=== PATIENT | female | born 1995 | race Caucasian/White ===

== ENCOUNTER → 2016-05-25 | Outpatient (CLI) | payer OTHER ==
[~2016-05-25] MED LIST: ACET50TA PO; IBUP800T23 PO; NORCOTAB PO; STUACAP PO
[2016-05-25 13:25] LABS: MEAN CORPUSCULAR HEMOGLOBIN 27.6 pg (27.0-33.0); MEAN CORPUSCULAR HGB CONC 32.6 g/dl (32.0-36.5); MEAN CORPUSCULAR VOLUME 84.8 fl (80.0-96.0); RED CELL DISTRIBUTION WIDTH 14.5 % (11.5-14.5); WHITE BLOOD COUNT 10.8 K/mm3 (4.0-10.0)
[2016-05-25 13:39] LABS: FREE T4 1.02 NG/DL (0.78-1.33)
== END ==
LOC: M SMT 08:24
PROVIDERS: ATTEND Obstetrics & Gynecology
DX: Z34.82 Encounter for supervision of other normal pregnancy, second trimester (principal)

== ENCOUNTER → 2016-05-30 | Outpatient (CLI) | payer OTHER | LOC: M SMT 09:21 | PROVIDERS: ATTEND Obstetrics & Gynecology | DX: Z34.82 Encounter for supervision of other normal pregnancy, second trimester (principal) ==

== ENCOUNTER → 2016-06-13 | Outpatient (CLI) | payer OTHER ==
--- NOTE | 2016-06-13 16:08 | REP ---
Obstetric sonography: History: Supervision of , second trimester study. For anatomy. Findings: Scanning through the gravid uterus demonstrates a viable single intrauterine gestation in a breech lie. motion is observed and heart rate is recorded at 155 beats per minute. A marginal posterior placenta is seen, grade 0 without evidence of previa or abruption. Closed cervical length is 4.3 cm measured trans-vaginally as well as transabdominally. On transvaginal imaging, the inferior edge of the placenta is only 0.25 cm from the internal cervical os. Also noted on transvaginal imaging is a thin cord-like structure extending down to the inferior edge of the placenta at the internal cervical os. This of uncertain significance. It is avascular on Doppler interrogation. Thus, there is not felt to be evidence of vasa previa. Follow-up is recommended however. No extrauterine abnormalities observed. No anomaly is seen. The following anatomic structures are less than optimally seen today due to position: cerebellum and posterior fossa, face and profile, four-chamber heart with left and right ventricular cardiac outflow tract views, kidneys, spine. The following additional anatomic structures are identified and felt to be sonographically unremarkable: cranium, choroid plexus, cavum, lungs, diaphragm, left-sided stomach, abdominal wall cord insertion, three-vessel umbilical cord, urinary bladder, upper and lower extremities. Biometry chart: BPD 4.4 cm = 19 weeks 1 day HC 16.5 cm = 19 weeks 2 days AC 14.3 cm = 19 weeks 5 days FL 2.9 cm = 19 weeks 0 days HL 2.8 cm = 18 weeks 6 days HC/AC ratio normal 1.15. Cephalic index normal 0.73. Estimated weight 287 grams 0 pounds 10 ounces, 60th percentile for 19 weeks 0 days. Impression: Viable single intrauterine gestation at 19 weeks 1 day by today's composite criteria. WILL by today's sonography November 06, 2016. anatomic survey less than complete. Low posterior marginal placenta, 0.25 cm. Cord-like structure at the inferior placental attachment, uncertain etiology. Internal cervical os placental margin follow-up suggested. Followup for additional anatomy. Signed by Dmitriy Warner MD 06/13/2016 07:44 P
== END ==
LOC: M RAD 14:31
PROVIDERS: ATTEND Obstetrics & Gynecology
DX: Z36 Encounter for antenatal screening of mother (principal); Z3A.19 19 weeks gestation of pregnancy

== ENCOUNTER → 2016-06-24 | Outpatient (REF) | payer MEDICAID, OTHER | LOC: M LAB REF 16:52 | PROVIDERS: ATTEND Obstetrics & Gynecology | DX: O99.212 Obesity complicating pregnancy, second trimester (principal); Z3A.00 Weeks of gestation of pregnancy not specified ==

== ENCOUNTER → 2016-07-02 | Outpatient (REF) | payer MEDICAID | LOC: M LAB REF 12:08 | PROVIDERS: ATTEND Physician Assistant Medical | DX: B34.9 Viral infection, unspecified (principal) ==

== ENCOUNTER → 2016-07-06 | Outpatient (CLI) | payer MEDICAID, OTHER, SELFPAY ==
--- NOTE | 2016-07-06 16:52 | REP ---
Clinical: Anatomical evaluation. Comparison: 06/13/2016 . Findings: Examination demonstrates a single live intrauterine in cephalic presentation. motion is identified by technologist. Placenta is noted posteriorly and low-lying approximately 1.6 cm from the closed internal os and grade 1. Amniotic fluid volume is normal. Cervix measures 4.7 cm in length and appears closed. No evidence for nuchal cord. Gestational age by LMP 22 weeks 2 days with WILL 11/07/2016 . Gestational age by current measurements 21 weeks 2 days with WILL is 11/14/2016 . FHR equals 161 beats per minute. Estimated weight 461 grams ( 34th percentile). Anatomical assessment demonstrates normal structures including cranium, choroid plexus, cavum, cerebellum/posterior fossa, facial features, lungs, four-chamber heart/ventricular outflow tracts, diaphragm, stomach, cord insertion/three-vessel cord, kidneys/bladder, spine, and extremities. Impression: 1. Single live intrauterine in cephalic presentation demonstrating appropriate interval growth. Anatomical assessment is complete and normal. 2. Posterior low-lying placenta approximately 1.6 cm from the closed os. 3. Nuchal cord cannot be excluded. Signed by Sanju Call MD 07/06/2016 04:43 P
== END ==
LOC: M RAD 14:55
PROVIDERS: ATTEND Obstetrics & Gynecology
DX: Z36 Encounter for antenatal screening of mother (principal); Z3A.21 21 weeks gestation of pregnancy

== ENCOUNTER → 2016-07-08 | Outpatient (REF) | payer MEDICAID | LOC: M LAB REF 16:46 | PROVIDERS: ATTEND Obstetrics & Gynecology | DX: O99.212 Obesity complicating pregnancy, second trimester (principal); Z3A.00 Weeks of gestation of pregnancy not specified ==

== ENCOUNTER → 2016-08-16 | Outpatient (CLI) | payer OTHER ==
[2016-08-16 13:42] LABS: MEAN CORPUSCULAR HEMOGLOBIN 30.6 pg (27.0-33.0); MEAN CORPUSCULAR VOLUME 92.7 fl (80.0-96.0); RED CELL DISTRIBUTION WIDTH 14.4 % (11.5-14.5); WHITE BLOOD COUNT 11.1 K/mm3 (4.0-10.0)
== END ==
LOC: M SMT 08:47
PROVIDERS: ATTEND Obstetrics & Gynecology
DX: Z34.02 Encounter for supervision of normal first pregnancy, second trimester (principal)

== ENCOUNTER → 2016-09-13 | Outpatient (CLI) | payer OTHER ==
--- NOTE | 2016-09-14 05:15 | REP ---
Clinical: Growth discrepancy. Placental location . Comparison: 07/06/2016 . Findings: Examination demonstrates a single live intrauterine in cephalic presentation. motion is identified by technologist. Placenta is noted posteriorly and grade zero without evidence for placenta previa or abruption. Amniotic fluid volume is normal. Cervix measures 3.7 cm in length and appears closed. No evidence for nuchal cord. Gestational age by LMP 32 weeks 1 day with WILL 11/07/2016 . Gestational age by current measurements 33 weeks 6 day with WILL 10/26/2016 . FHR equals 155 beats per minute. BPD 8.5 cm 34 weeks 2 days HC 31.2 cm 35 weeks 0 days AC 38.3 cm 34 weeks 2 days FL 6.6 cm 33 weeks 5 days HL 5.5 cm 32 weeks 1 day HC/AC ratio 1.03 Estimated weight 2371 grams ( 88th percentile). Amniotic fluid index equals 13.4 cm (8.6 724.2). SD ratio equals 3.10 (2.45 - 3.45) Impression: 1. Single live intrauterine in a straight appropriate interval growth. 2. Placenta noted posteriorly, grade zero, and without placenta previa. Signed by Sanju Call MD 09/14/2016 05:06 A
== END ==
LOC: M RAD 16:43
PROVIDERS: ATTEND Obstetrics & Gynecology
DX: Z36 Encounter for antenatal screening of mother (principal); Z3A.33 33 weeks gestation of pregnancy

== ENCOUNTER 2016-10-02 13:42 | Outpatient (CLI) | payer OTHER ==
[~2016-10-02] VITALS: Ht 175.3 cm; Wt 103.0 kg
[2016-10-02 13:55] VITALS: BP 113/61
[2016-10-02] MEDS ORDERED: LR 800 ML IV ONE (14:15)
[2016-10-02 14:57] LABS: MEAN CORPUSCULAR HEMOGLOBIN 30.9 pg (27.0-33.0); MEAN CORPUSCULAR HGB CONC 34.4 g/dl (32.0-36.5); MEAN CORPUSCULAR VOLUME 89.9 fl (80.0-96.0); RED CELL DISTRIBUTION WIDTH 14.5 % (11.5-14.5); WHITE BLOOD COUNT 12.4 K/mm3 (4.0-10.0)
[2016-10-02] MEDS ORDERED: TYLE500T78 PO (15:04)
[2016-10-02] MEDS ORDERED: LR 1,000 ML IV SCH (15:15)
[2016-10-02 15:19] LABS: ANION GAP 11 MEQ/L (8-16); BLOOD UREA NITROGEN 6 MG/DL (7-18); CALCIUM LEVEL 8.4 MG/DL (8.5-10.1); CARBON DIOXIDE LEVEL 20 MEQ/L (21-32); CHLORIDE LEVEL 107 MEQ/L (98-107); CREATININE FOR GFR 0.38 MG/DL (0.55-1.02); GLUCOSE, FASTING 78 MG/DL (70-105); POTASSIUM SERUM 3.9 MEQ/L (3.5-5.1); SODIUM LEVEL 138 MEQ/L (136-145)
[2016-10-02 16:02] VITALS: BP 102/58
[2016-10-02] MEDS ORDERED: ACETAMINOPHEN TAB 650MG DOSE (2X325MG) PO ONE (17:30)
[2016-10-02 17:53] VITALS: BP 150/59
[2016-10-02 17:54] VITALS: BP 104/55
== END 2016-10-02 18:10 | disposition home or self-care (01) ==
LOC: M LDO 13:42
PROVIDERS: ATTEND Obstetrics & Gynecology
DX: O99.89 Other specified diseases and conditions complicating pregnancy, childbirth and the puerperium (principal); R11.2 Nausea with vomiting, unspecified; E86.0 Dehydration; O99.113 Other diseases of the blood and blood-forming organs and certain disorders involving the immune mechanism complicating pregnancy, third trimester; Z3A.34 34 weeks gestation of pregnancy

== ENCOUNTER → 2016-10-12 | Outpatient (CLI) | payer OTHER ==
[~2016-10-12] MED LIST changes: +IBUP-1114 PO; +IBUP1TAB7 PO; -IBUP800T23 PO; +PRENTAB9 PO; +TYLE500T78 PO
[2016-10-12 13:20] LABS: MEAN CORPUSCULAR HEMOGLOBIN 29.9 pg (27.0-33.0); MEAN CORPUSCULAR HGB CONC 32.2 g/dl (32.0-36.5); MEAN CORPUSCULAR VOLUME 92.6 fl (80.0-96.0); RED CELL DISTRIBUTION WIDTH 14.1 % (11.5-14.5); WHITE BLOOD COUNT 9.5 K/mm3 (4.0-10.0)
== END ==
LOC: M SMT 10:36
PROVIDERS: ATTEND Obstetrics & Gynecology
DX: D69.59 Other secondary thrombocytopenia (principal)

== ENCOUNTER → 2016-10-13 | Outpatient (REF) | payer OTHER | LOC: M LAB REF 17:47 | PROVIDERS: ATTEND Obstetrics & Gynecology | DX: Z34.83 Encounter for supervision of other normal pregnancy, third trimester (principal) ==

== ENCOUNTER 2016-10-26 08:33 | Inpatient (IN) | payer OTHER ==
[~2016-10-26] VITALS: Ht 175.3 cm; Wt 106.0 kg
[2016-10-26] VITALS (25 sets, daily range): BP systolic 105–169; BP diastolic 55–84
[~2016-10-26 08:33] MED LIST changes: -IBUP-1114 PO; -PRENTAB9 PO
[2016-10-26] MEDS ORDERED: LR 1,000 ML IV SCH ×2 (09:42→15:08)
[2016-10-26] MEDS ORDERED: LACTATED RINGER'S 1000 ML IV STA (09:42)
[2016-10-26] MEDS ORDERED: OXYTOCIN DRIP 30 UNITS in APPROPRIATE DILUENT 1 EA IV SCH ×2 (09:45→15:08)
--- NOTE | 2016-10-26 10:06 | HPE ---
DATE OF ADMISSION: 10/26/2016 21-year-old 2, para 1-0-0-1, estimated date of delivery 11/07/2016 presents at 38 weeks 2 days with reports of spontaneous rupture of membranes, clear fluid, at 0705 with onset of mild contractions thereafter. Reports bloody show. Fetus is active. Last normal menstrual period 02/01/2016 for estimated date of delivery (WILL) 11/07/2016. Sonogram at 9 weeks confirmed date. Anatomy scan complicated by low lying placenta that later resolved. Otherwise, within normal limits. Mild gestational thrombocytopenia that resolved. OBSTETRICAL HISTORY: March 2015, induction of labor at 40 weeks 5 days, normal spontaneous vaginal , viable female 8 pounds 10 ounces. ALLERGIES: No known drug allergies. MEDICAL-SURGICAL HISTORY: Cholecystectomy. Depression. FAMILY HISTORY: Thyroid dysfunction. SOCIAL HISTORY: . Family is supportive. Former smoker. Denies alcohol, drugs or abuse. OBJECTIVE: Prepregnancy weight 242, has lost 7 pounds with . A positive. Antibody negative. Rubella immune. VDRL, hepatitis B, hepatitis C, HIV, gonorrhea and Chlamydia all negative. Early 1-hour glucose was 105. Declined genetic screening. Mild edema at 26-28 weeks. 1 hour glucose was 120 and group B strep was negative. Vital signs are stable. She is in no apparent distress. Heart rate is regular. Respirations are easy. Abdomen is soft, gravid, longitudinal lie. Uterine contractions 3-4 minutes apart times 45 seconds and mild. heart is 135, moderate variability with accelerations. Fluid draining per vagina, possible meconium staining noted on pad. Bloody show. Positive Nitrazine, positive fern. Sterile vaginal exam 3 cm, 90% effaced, -2 station, cephalic. ASSESSMENT: Multiparous at term, premature rupture of membranes (PROM), early labor, category 1 tracing. PLAN: Admit. Pitocin augmentation of labor. Notify NICU if confirmed meconium. Patient considering epidural. Anticipate normal spontaneous vaginal .
[2016-10-26 10:40] LABS: MEAN CORPUSCULAR VOLUME 88.3 fl (80.0-96.0); RED CELL DISTRIBUTION WIDTH 14.5 % (11.5-14.5); WHITE BLOOD COUNT 14.4 K/mm3 (4.0-10.0)
[2016-10-26] MEDS ORDERED: PROMETHAZINE INJ 25 MG/ML VIAL (J2550) IV ONE (11:45)
[2016-10-26] MEDS ORDERED: BUTORPHANOL 2 MG/ML INJ (J0595) IV ONE (11:45)
[2016-10-26] MEDS ORDERED: FENTANYL 2MCG/ML ROPIVACAINE 0.2% IN 0.9% NACL 200ML IVBAG As Ordered ONE (13:22)
[2016-10-26] MEDS ORDERED: diphenhydrAMINE INJ 50MG/ML VIAL (J1200) IV PRN (14:05)
[2016-10-26] MEDS ORDERED: FENTANYL/ROPIVACAINE/NACL BAG 200 ML EPIDURAL SCH (14:05)
[2016-10-26] MEDS ORDERED: EPIDURAL COMMENT XX SCH (14:05)
[2016-10-26] MEDS ORDERED: LACTATED RINGER'S 1000 ML IV PRN (14:05)
[2016-10-26] MEDS ORDERED: ePHEDrine SULFATE 25 MG/5 ML(5MG/ML) SYRINGE IV PRN (14:05)
[2016-10-26] MEDS ORDERED: EPIDURAL/PCA KEYS XX PRN (14:05)
[2016-10-26] MEDS ORDERED: ONDANSETRON 4MG/2ML VIAL (J2405) IV PRN ×2 (14:05→15:15)
[2016-10-26] MEDS ORDERED: REFRIGERATOR IV KEYS XX PRN (14:05)
[2016-10-26] MEDS ORDERED: NALOXONE INJ 0.4 MG/1 ML VIAL (J2310) IV PRN (14:05)
[2016-10-26] MEDS ORDERED: DOCUSATE SODIUM 100 MG CAP PO PRN (15:15)
[2016-10-26] MEDS ORDERED: MEASLES,MUMPS,RUBELLA VACCINE INJ (MMR-II) (90707) SC SCH (15:15)
[2016-10-26] MEDS ORDERED: ACETAMINOPHEN 500 MG TAB PO PRN (15:15)
[2016-10-26] MEDS ORDERED: DIBUCAINE 1% OINTMENT 30GM TOP PRN (15:15)
[2016-10-26] MEDS ORDERED: RHOGAM 300 MCG (1500 IU) INJ (J2790) IM SCH (15:15)
[2016-10-26] MEDS ORDERED: PROMETHAZINE 25 MG TAB PO PRN (15:15)
[2016-10-27 06:22] VITALS: BP 111/58
[2016-10-27] MEDS: PRENATAL VITAMINS CHEWABLE TABLET PO SCH (08:17)
[2016-10-27] MEDS: IBUPROFEN 800 MG TAB PO PRN (08:21)
[2016-10-27 18:51] VITALS: BP 120/67
[2016-10-28] MEDS: IBUPROFEN 800 MG TAB PO PRN (05:49)
[2016-10-28 06:50] VITALS: BP 121/67
[2016-10-28] MEDS: PRENATAL VITAMINS CHEWABLE TABLET PO SCH (07:30)
[2016-10-28] MEDS ORDERED: IBUP-1114 PO (10:14)
[2016-10-28] MEDS ORDERED: ACET50TA PO (10:14)
[2016-10-28] MEDS ORDERED: PRENTAB9 PO (10:14)
== END 2016-10-28 12:05 | disposition home or self-care (01) | DRG 560 ==
LOC: M LDO 08:33 → M LDI 09:52 → M OBS 18:25
PROVIDERS: ADMIT Advanced Practice Midwife; ATTEND Advanced Practice Midwife
PROC: 10E0XZZ Delivery of Products of Conception, External Approach (ICD-10-PCS; principal; 2016-10-26)
DX: O42.02 Full-term premature rupture of membranes, onset of labor within 24 hours of rupture (principal); O69.89X0 Labor and delivery complicated by other cord complications, not applicable or unspecified; Z37.0 Single live birth; Z3A.38 38 weeks gestation of pregnancy

== ENCOUNTER 2017-12-29 10:22 | Day surgery (SDC) | payer OTHER ==
[~2017-12-29 10:22] MED LIST changes: -ACET50TA PO; -IBUP1TAB7 PO; +LR 1,000 ML IV; -NORCOTAB PO; -STUACAP PO; -TYLE500T78 PO
[2017-12-29 10:56] LABS: HEMATOCRIT 45.5 % (36.0-47.0); HEMOGLOBIN 14.6 g/dl (12.0-15.5); MEAN CORPUSCULAR HEMOGLOBIN 28.9 pg (27.0-33.0); MEAN CORPUSCULAR HGB CONC 32.1 g/dl (32.0-36.5); MEAN CORPUSCULAR VOLUME 90.1 fl (80.0-96.0); PLATELET COUNT, AUTOMATED 227 10^3/uL (150-450); RED BLOOD COUNT 5.05 10^6/uL (4.00-5.40); RED CELL DISTRIBUTION WIDTH 13.7 % (11.5-14.5); WHITE BLOOD COUNT 12.4 10^3/uL (4.0-10.0)
[2017-12-29 11:17] LABS: CONTROL LINE HCG INT CTR LINE PRESENT; HCG, SERUM QUALITATIVE NEGATIVE (NEGATIVE)
[2017-12-29] MEDS: BUPIVACAINE HCL 0.25% 10 ML VIAL As Ordered (13:16)
[2017-12-29] MEDS ORDERED: ONDANSETRON 4MG/2ML VIAL (J2405) As Ordered (13:46)
[2017-12-29] MEDS ORDERED: fentaNYL 100 MCG/2 ML INJECTION (J3010) As Ordered (13:46)
[2017-12-29] MEDS ORDERED: KETOROLAC 60 MG/2 ML VIAL (J1885) As Ordered (13:46)
[2017-12-29] MEDS ORDERED: MIDAZOLAM INJ 2 MG/2 ML VIAL (J2250) As Ordered (13:46)
[2017-12-29] MEDS ORDERED: GLYCOPYRROLATE INJ 0.2 MG/ML 2 ML VIAL As Ordered (13:46)
[2017-12-29] MEDS ORDERED: PROPOFOL 200 MG/20 ML VIAL As Ordered ×2 (13:46→14:11)
[2017-12-29] MEDS ORDERED: NEOSTIGMINE 10 MG/10 ML VIAL (J2710) As Ordered (13:46)
[2017-12-29] MEDS ORDERED: HYDROmorphone HCL 2 MG/ML 1ML VIAL (J1170) As Ordered (13:46)
[2017-12-29] MEDS ORDERED: ROCURONIUM BROMIDE 50 MG/5 ML VIAL As Ordered (13:46)
[2017-12-29] MEDS ORDERED: dexameTHASONE 4 MG/ML 1ML VIAL (J1100) As Ordered (13:46)
[2017-12-29] MEDS ORDERED: LIDOCAINE 2% INJ 100 MG/5 ML SDV (FOR ANES.) As Ordered (13:46)
[2017-12-29] MEDS ORDERED: PERCOCET 5MG/325MG TAB As Ordered (14:29)
[2017-12-29] MEDS: PERCOCET 5MG/325MG TAB PO (14:30)
[2017-12-29] MEDS ORDERED: LR 1,000 ML IV ×2 (14:45)
[2017-12-29] MEDS ORDERED: METOCLOPRAMIDE INJ 10MG/2ML VIAL (J2765) IV (14:45)
[2017-12-29] MEDS ORDERED: fentaNYL 100 MCG/2 ML INJECTION (J3010) IV (14:45)
[2017-12-29] MEDS ORDERED: MEPERIDINE INJ 25 MG/ML VIAL (J2175) IV (14:45)
[2017-12-29] MEDS ORDERED: KETOROLAC 30 MG/ML VIAL (J1885) IV (14:45)
[2017-12-29] MEDS ORDERED: ONDANSETRON 4MG/2ML VIAL (J2405) IV (14:45)
== END 2017-12-29 16:15 | disposition home or self-care (01) ==
LOC: M SDC 10:22
DX: Z30.2 Encounter for sterilization (principal); F41.9 Anxiety disorder, unspecified; F32.9 Major depressive disorder, single episode, unspecified; E66.9 Obesity, unspecified; Z68.32 Body mass index [BMI] 32.0-32.9, adult; Z72.0 Tobacco use
CPT/HCPCS: 58661

== ENCOUNTER → 2018-01-23 | Outpatient (CLI) | payer OTHER | LOC: M SMT 14:14 | DX: Z13.79 Encounter for other screening for genetic and chromosomal anomalies (principal) | CPT/HCPCS: 36415 ==

== ENCOUNTER → 2018-10-31 | Outpatient (CLI) | payer OTHER ==
[~2018-10-31] MED LIST changes: +COLA100C5 PO; +HYDR-3715 PO; +IBUP-1114 PO; +IBUP1TAB7 PO; +IBUP80TA PO; -LR 1,000 ML IV; +MAPA500T2 PO; +PERCOCET PO; +PRENTAB9 PO; +STUACAP PO; +TYLE500T78 PO
[2018-11-02 10:45] LABS: HEPATITIS A ANTIBODY IGM NEGATIVE (NEGATIVE); HEPATITIS B CORE ANTIBODY IGM NEGATIVE (NEGATIVE); HEPATITIS B SURFACE ANTIGEN NEGATIVE (NEGATIVE); HEPATITIS C VIRUS ABY INDEX 0.1 INDEX (<0.8); HIV 1&2 SCREEN CENTAUR NEGATIVE (NEGATIVE)
== END ==
LOC: M SMT 16:21
PROVIDERS: ATTEND Obstetrics & Gynecology
DX: Z12.4 Encounter for screening for malignant neoplasm of cervix (principal); Z11.3 Encounter for screening for infections with a predominantly sexual mode of transmission; R87.612 Low grade squamous intraepithelial lesion on cytologic smear of cervix (LGSIL)

== ENCOUNTER → 2018-10-31 | Outpatient (REF) | payer OTHER ==
[2018-11-01 16:42] LABS: CHLAMYDIA DNA AMPLIFICATION NEGATIVE (NEGATIVE); GC DNA AMPLIFICATION NEGATIVE (NEGATIVE)
== END ==
LOC: M LAB REF 13:22
PROVIDERS: ATTEND Obstetrics & Gynecology
DX: Z11.3 Encounter for screening for infections with a predominantly sexual mode of transmission (principal)

== ENCOUNTER → 2018-11-08 | Outpatient (CLI) | payer OTHER | LOC: M SMT 14:13 | PROVIDERS: ATTEND Obstetrics & Gynecology | DX: Z13.79 Encounter for other screening for genetic and chromosomal anomalies (principal) ==

== ENCOUNTER → 2018-11-14 | Outpatient (REF) | payer OTHER | LOC: M LAB REF 18:31 | PROVIDERS: ATTEND Obstetrics & Gynecology | DX: R87.612 Low grade squamous intraepithelial lesion on cytologic smear of cervix (LGSIL) (principal) ==

== ENCOUNTER → 2020-02-10 | Outpatient (REF) | payer OTHER ==
[2020-02-12 09:17] LABS: CHLAMYDIA DNA AMPLIFICATION NEGATIVE (NEGATIVE); GC DNA AMPLIFICATION NEGATIVE (NEGATIVE)
== END ==
LOC: M SFHCWAGY 12:40
PROVIDERS: ATTEND Obstetrics & Gynecology
DX: Z12.4 Encounter for screening for malignant neoplasm of cervix (principal); Z77.9 Other contact with and (suspected) exposures hazardous to health